=== PATIENT | female | born 1970 | race Caucasian/White ===

== ENCOUNTER 2019-06-08 19:46 | Emergency (ER) | payer SELFPAY | END 2019-06-08 21:34 | disposition home or self-care (01) | LOC: ED 19:46 ==

== ENCOUNTER 2019-07-05 22:40 | Emergency (ER) | payer SELFPAY ==
[2019-07-05] MEDS ORDERED: DUONEB 0.5-3 MG/3 ml Neb IH ONE (22:57)
--- NOTE | 2019-07-05 23:00 | ERPHSYRPT ---
- History of Present Illness Time Seen by Provider: 07/05/19 22:55 Source: patient Exam Limitations: no limitations Physician History: Cough and congestion the past two weeks Timing/Duration: week(s) (2), worse (over the past two days) Cough Quality/Degree: moderate, dry cough Possible Cause: occasional episodes, allergen exposure Modifying Factors: Worsens With: coughing Associated Symptoms: No fever, No chills, No chest pain/soreness, No cough, No dizziness, No earache, No facial pain, No headache, No lightheadedness, No muscle aches, No nasal congestion, No nasal drainage, No shortness of breath, No sinus infection, No sore throat, No wheezing Allergies/Adverse Reactions: No Known Drug Allergies Allergy (Unverified 06/08/19 20:02) Home Medications: Carvedilol 3.125 mg [Coreg 3.125 MG] 3.125 mg PO BID 07/05/19 [History] Hx Tetanus, Diphtheria Vaccination/Date Given: No Hx Influenza Vaccination/Date Given: No Hx Pneumococcal Vaccination/Date Given: No - Review of Systems Constitutional: No Fever, No Chills Eyes: No Eye Pain, No Vision Changes Ears, Nose, & Throat: Nose Congestion Respiratory: Cough, No Dyspnea Cardiac: No Chest Pain, No Edema, No Syncope Abdominal/Gastrointestinal: No Abdominal Pain, No Nausea, No Vomiting, No Diarrhea, No Hematemesis, No Hematochezia, No Melena Genitourinary Symptoms: No Dysuria, No Hematuria, No Flank Pain Musculoskeletal: No Back Pain, No Neck Pain Skin: No Rash Neurological: No Dizziness, No Focal Weakness, No Paralysis, No Parasthesia, No Sensory Changes Psychological: No Anxiety Endocrine: No Polydipsia, No Excessive Sweating Hematologic/Lymphatic: No Easy Bleeding, No Easy Bruising All Other Systems: Reviewed and Negative - Past Medical History Pertinent Past Medical History: No Neurological History: Migraines Cardiac History: No Pertinent History Respiratory History: Pneumonia Endocrine Medical History: No Pertinent History Musculoskeletal History: Arthritis GI Medical History: GERD History: No Pertinent History Psycho-Social History: No Pertinent History Female Reproductive Disorders: No Pertinent History - Past Surgical History Past Surgical History: Yes Neuro Surgical History: No Pertinent History Cardiac: No Pertinent History Respiratory: No Pertinent History Gastrointestinal: No Pertinent History Genitourinary: No Pertinent History Musculoskeletal: No Pertinent History Female Surgical History: Section, Tubal Ligation - Social History Smoking Status: Current every day smoker How long have you smoked: 20 Exposure to second hand smoke: Yes Drug Use: none Patient Lives Alone: No - Nursing Vital Signs Nursing Vital Signs: Initial Vital Signs Temperature 97.9 F 07/05/19 22:50 Pulse Rate 98 H 07/05/19 22:50 Respiratory Rate 20 07/05/19 22:50 Blood Pressure 144/99 07/05/19 22:50 O2 Sat by Pulse Oximetry 97 07/05/19 22:50 Pain Scale Pain Intensity 9 - Physical Exam General Appearance: no apparent distress, alert Eye Exam: PERRL/EOMI, eyes nml inspection Ears, Nose, Throat Exam: normal ENT inspection, TMs normal, pharynx normal, moist mucous membranes Neck Exam: normal inspection, non-tender, supple, full range of motion Respiratory Exam: airway intact, diminished breath sounds, prolonged expirations , wheezing, No chest tenderness, No respiratory distress, No accessory muscle use, No crackles/rales, No rhonchi, No stridor Cardiovascular Exam: regular rate/rhythm, normal heart sounds, capillary refill <2 sec Gastrointestinal/Abdomen Exam: soft, normal bowel sounds, No tenderness, No distention, No mass, No guarding, No rebound, No hernia, No hepatomegaly, No organomegaly, No splenomegaly Back Exam: normal inspection, No CVA tenderness, No vertebral tenderness Extremity Exam: normal inspection, normal range of motion, pelvis stable Neurologic Exam: alert, oriented x 3, cooperative, 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 tested, normal mood/affect, sensation nml, No motor deficits Skin Exam: normal color, warm, dry, No rash Lymphatic Exam: No adenopathy SpO2 Interpretation: normal SpO2: 97 O2 Delivery: Room Air - Radiology Exams Chest X-ray Interpretation: Interpreted by me, Reviewed by me, Negative, No Fracture, No Pneumonia, No Pneumothorax, No Infiltrates, Nml Mediastinum Ordered Tests: Active Orders 24 hr Category Date Time Status CHEST 2 VIEWS (PA AND LAT) Stat Exams 07/06/19 00:07 Taken Peak Expiratory Flow Rate ONCE RT 07/06/19 00:09 Active Respiratory Therapy Assessment DAILY RT 07/06/19 00:09 Active Medication Summary Discontinued Medications Generic Name Dose Route Start Last Admin Trade Name Freq PRN Reason Stop Dose Admin Albuterol/Ipratropium 6 ml 07/05/19 22:57 07/06/19 00:05 Duoneb 0.5-3 Mg/3 Ml Neb IH 07/05/19 22:58 6 ml STAT ONE Administration Albuterol/Ipratropium Confirm 07/06/19 00:02 Duoneb 0.5-3 Mg/3 Ml Neb Administered 07/06/19 00:03 Dose 3 ml IH .STK-MED ONE Albuterol/Ipratropium Confirm 07/06/19 00:08 Duoneb 0.5-3 Mg/3 Ml Neb Administered 07/06/19 00:09 Dose 3 ml IH .STK-MED ONE Albuterol/Ipratropium 3 ml 07/06/19 01:09 07/06/19 01:15 Duoneb 0.5-3 Mg/3 Ml Neb IH 07/06/19 01:10 3 ml STAT ONE Administration Albuterol/Ipratropium Confirm 07/06/19 01:13 Duoneb 0.5-3 Mg/3 Ml Neb Administered 07/06/19 01:14 Dose 3 ml IH .STK-MED ONE - Progress Progress: re-examined, unchanged Air Movement: fair Progress Note: 07/06/19 01:10 Decreased breath sounds throughout. Will repeat Duoneb treatment. 07/06/19 01:49 Improved airflow after third Duoneb treatment. No respiratory distress. Blood Culture(s) Obtained: No Antibiotics given: No Counseled pt/family regarding: diagnosis, need for follow-up, rad results - Departure Departure Disposition: Home Clinical Impression: Cough, Elevated blood pressure reading without diagnosis of hypertension Acute bronchitis Qualifiers: Bronchitis organism: unspecified organism Qualified Code(s): J20.9 - Acute bronchitis, unspecified Condition: Good Critical Care Time: No Referrals: EMMIE BARRY MD [Primary Care Provider] - Follow Up with PCP/3 days Instructions: DASH Diet, Acute Bronchitis, Adult (DC), Cough, Adult (DC) Additional Instructions: Your chest x-ray was read negative by the emergency department physician. We will call you tomorrow if the radiologist reads a difference interpretation that changes your treatment. Follow up with your doctor in 3 days. Continue to cut down on your smoking. Try not to smoke altogether. ffollow up with your physician in 3 days if the cough is no improvement. Return immediately back to the emergency room if any shortness of breath, worsening chest pain, new fever, any worse chest tightness, or any other concerning signs or symptoms that were not present at today's visit for immediate reevaluation in the emergency department. Forms: Work/School Release Form Prescriptions: Albuterol Sulfate [Proair Hfa] 8.5 gm IH Q4H PRN PRN #1 [id number] PRN Reason: Wheezing/Chest Congestion Prednisone 20 mg [Deltasone 20 mg] 60 mg PO DAILY #9 tablet Promethazine/Dextromethorphan [Promethazine-Dm Solution] 5 ml PO Q6-8HPRN PRN # 90 ml PRN Reason: Cough
[2019-07-06] MEDS ORDERED: DUONEB 0.5-3 MG/3 ml Neb IH ONE ×4 (00:02→01:13)
[2019-07-06 02:14] VITALS: BP 126/67; PULSE 92; O2SAT 94
--- NOTE | 2019-07-06 19:19 | XRAY ---
Exam: Two-view chest from 07/06/2019. Comparison: AP upright portable chest film from 06/08/2019. Indication: Cough for 2 weeks. Findings: Upright PA and lateral chest films are submitted for evaluation. The heart size and contour are normal. The drake and mediastinal structures appear intact. There is patchy density and scattered linear and curvilinear stranding at the left lung base which is new from 06/08/2019. This could be due to atelectatic changes. The possibly of some superimposed infiltrate cannot be excluded. The remainder of the lungs appears clear. No central vascular congestion, pneumothorax, or pleural fluid is seen. Mild lower thoracic anterior lateral vertebral endplate spurring is seen. I also note minimal levoscoliosis centered at T10-T11. Impression: 1. There is a new patchy airspace disease with linear and curvilinear stranding at the left lung base which may all be due to atelectatic changes. However, it is difficult to entirely exclude some superimposed infiltrate. Clinical correlation is recommended. Note: I personally called this report to the Emergency Department at 7:07 PM on 07/06/2019. .
== END 2019-07-06 02:15 | disposition home or self-care (01) ==
LOC: ED 22:40
DX: R05 Cough (principal); R03.0 Elevated blood-pressure reading, without diagnosis of hypertension; J20.9 Acute bronchitis, unspecified
CPT/HCPCS: 71046; 94150; 94640; 99284; A9270-GY

== ENCOUNTER 2019-08-29 07:00 | Emergency (ER) | payer MEDICAID ==
[2019-08-29] MEDS ORDERED: BABY ASPIRIN 81 MG CHEW PO ONE (07:12)
[2019-08-29] MEDS ORDERED: Sodium Chloride 0.9% 1000 ML 1,000 ML IV SCH (07:15)
[2019-08-29] MEDS ORDERED: Zofran 4 MG/2 ML VIAL IV ONE (07:15)
[2019-08-29] MEDS ORDERED: BABY ASPIRIN 81 MG CHEW ONE (07:21)
[2019-08-29] MEDS ORDERED: Zofran 4 MG/2 ML VIAL ONE (07:21)
[2019-08-29] MEDS ORDERED: Hydromorphone 1 mg/ml Ampule ONE ×2 (07:22→10:22)
[2019-08-29] MEDS ORDERED: Sodium Chloride 0.9% 1000 ML 1,000 ML ONE (07:22)
[2019-08-29] MEDS ORDERED: Hydromorphone 1 mg/ml Ampule IV ONE ×2 (07:23→10:16)
[2019-08-29 07:39] LABS: Absolute Neutrophil Ct (ANC) 6.75 (1.4-6.9); BASOPHIL % 0.2 % (0.0-0.4); Basophil (Absolute #) 0.02 (0-0.4); Eosinophil % 1.7 % (0.00-5.0); Eosinophil (Absolute #) 0.17 (0-0.5); Hematocrit 41.7 % (35-47); Hemoglobin 13.8 gm/dl (12.0-16.0); Lymphocyte (Absolute #) 2.58 (1.0-4.6); Mean Cell Volume 99.3 fl (78-100); Mean Corpuscular Hemoglobin 32.9 pg (26-32); Mean Corpuscular Hgb Concent. 33.1 g/dl (32-36); Mean Platelet Volume 9.1 fl (6-9.5); Monocyte (Absolute #) 0.39 (0.0-1.3); Monocytes % 3.9 % (0.0-12.0); Neutrophil % 68.2 % (36.0-66.0); Platelet Count 390 K/mm3 (150-450); Red Cell Distribution Width 14.9 % (11.5-14.0); White Blood Count 9.9 K/mm3 (4.0-10.5)
[2019-08-29 07:56] LABS: ALBUMIN 4.1 g/dL (3.5-5.0); ALKALINE PHOSPHATASE 75 U/L (38-126); AMYLASE 73 U/L (30-110); ANION GAP 14.1 MEQ/L (5-15); BLOOD UREA NITROGEN 6 mg/dL (7-17); CHLORIDE 104 mmol/L (98-107); CK-Creatinine Phosphokinase 70 U/L (30-135); Calcium 8.9 mg/dL (8.4-10.2); Carbon Dioxide 25 mmol/L (22-30); Creatinine 1 0.81 mg/dL (0.52-1.04); Glucose 174 mg/dL (74-106); LIPASE 151 U/L (23-300); NT PRO BNP 75.1 pg/mL (0-450); Potassium 3.5 mmol/L (3.5-5.1); SGOT/AST 20 U/L (14-36); SGPT/ALT 21 U/L (0-35); SODIUM 140 mmol/L (137-145); Total Protein 7.7 g/dL (6.3-8.2)
[2019-08-29 08:16] LABS: INR 0.97 (0.8-3.0)
[2019-08-29 08:19] LABS: PTT 35.7 SECONDS (25.3-37.0)
--- NOTE | 2019-08-29 13:21 | ERPHSYRPT ---
- History of Present Illness Time Seen by Provider: 08/29/19 07:03 Historian: patient Exam Limitations: no limitations Patient Subjective Stated Complaint: Pt states "about an hour ago I started to have shortness of breath and chest pain." Triage Nursing Assessment: Pt presented through the front, alert and orietned X 3, skin pwd Pt ambulates with an upright steady gait, able to speak in clear full sentences. Pt anxious and tachypneic Physician History: patient is a 48-year-old female who presents with shortness of breath and substernal pressure type pain along with tenderness in the epigastrium and right upper quadrant. This pain started while she was laying down she became nauseated. She was resected diagnosed with COPD and breathing issues she has seen Dr. Longoria in the past for a workup which only showed a leaky valve. She' s had no fever or chills a little bit of sweating no history of diabetes she does have a family history that's positive that she is a smoker as her only risk factors for coronary artery disease. Timing/Duration: today Activities at Onset: rest Quality: burning, cramping, sharpness Abdominal Pain Onset Location: RUQ, epigastric Pain Radiation: back Severity of Pain-Max: moderate Modifying Factors: Improves With: nothing Associated Symptoms: chest pain Allergies/Adverse Reactions: No Known Drug Allergies Allergy (Verified 08/29/19 07:16) Home Medications: Carvedilol 3.125 mg [Coreg 3.125 MG] 3.125 mg PO BID 07/05/19 [History] Albuterol Sulfate [Albuterol Sulfate Hfa] 1 puff IH DAILY 08/29/19 [History] Aspirin [Aspirin EC] 81 mg PO DAILY 08/29/19 [History] Hx Tetanus, Diphtheria Vaccination/Date Given: No Hx Influenza Vaccination/Date Given: No Hx Pneumococcal Vaccination/Date Given: No Immunizations Up to Date: Yes - Review of Systems Constitutional: No Fever, No Chills Eyes: No Symptoms Ears, Nose, & Throat: No Symptoms Respiratory: No Cough, No Dyspnea Cardiac: Chest Pain, No Edema, No Syncope Abdominal/Gastrointestinal: Abdominal Pain, Nausea, No Vomiting, No Diarrhea Genitourinary Symptoms: No Dysuria Musculoskeletal: No Back Pain, No Neck Pain Skin: No Rash Neurological: No Dizziness, No Focal Weakness, No Sensory Changes Psychological: No Symptoms Endocrine: No Symptoms All Other Systems: Reviewed and Negative - Past Medical History Pertinent Past Medical History: Yes Neurological History: Migraines ENT History: No Pertinent History Cardiac History: No Pertinent History Respiratory History: Pneumonia Endocrine Medical History: No Pertinent History Musculoskeletal History: Arthritis GI Medical History: GERD History: No Pertinent History Psycho-Social History: No Pertinent History Female Reproductive Disorders: No Pertinent History Other Medical History: emphysema. leaky heart valve - Past Surgical History Past Surgical History: Yes Neuro Surgical History: No Pertinent History Cardiac: No Pertinent History Respiratory: No Pertinent History Gastrointestinal: No Pertinent History Genitourinary: No Pertinent History Musculoskeletal: No Pertinent History Female Surgical History: Section, Tubal Ligation - Social History Smoking Status: Current every day smoker How long have you smoked: years Exposure to second hand smoke: Yes Drug Use: none Patient Lives Alone: No - Female History Hx Last Menstrual Period: 06/29/2019 Hx Now: No - Nursing Vital Signs Nursing Vital Signs: Initial Vital Signs Temperature 97.3 F 08/29/19 07:02 Pulse Rate 73 08/29/19 07:02 Respiratory Rate 22 08/29/19 07:02 Blood Pressure 134/96 08/29/19 07:02 O2 Sat by Pulse Oximetry 99 08/29/19 07:02 Pain Scale Pain Intensity 5 - Physical Exam General Appearance: mild distress, alert Eye Exam: PERRL/EOMI, eyes nml inspection Ears, Nose, Throat Exam: normal ENT inspection, pharynx normal, moist mucous membranes Neck Exam: normal inspection, non-tender, supple, full range of motion Respiratory Exam: normal breath sounds, lungs clear, No respiratory distress Cardiovascular Exam: regular rate/rhythm, normal heart sounds Gastrointestinal/Abdomen Exam: tenderness, No mass, No guarding, No rebound Pelvic Exam: deferred Back Exam: normal inspection, normal range of motion, No CVA tenderness, No vertebral tenderness Extremity Exam: normal inspection, normal range of motion, pelvis stable Neurologic Exam: alert, oriented x 3, cooperative, normal mood/affect, nml cerebellar function, sensation nml, No motor deficits Skin Exam: normal color, warm, dry SpO2: 96 - Course EKG Interpreted by Me: RATE (81), NORMAL AXIS, NORMAL INTERVALS, NORMAL QRS - Radiology Exams Chest X-ray Interpretation: Reviewed by me, Negative - CT Exams Abdomen/Pelvis CT Interpretation: Negative, Tele-radiologist Report Ordered Tests: Active Orders 24 hr Category Date Time Status ABDOMEN AND PELVIS W CONTRAST [CT] Stat Exams 08/29/19 08:47 Taken CHEST 1 VIEW (PORTABLE) Stat Exams 08/29/19 07:13 Taken AMYLASE Stat Lab 08/29/19 07:25 Completed CBC W DIFF Stat Lab 08/29/19 07:25 Completed CK-Creatinine Phosphokinase Stat Lab 08/29/19 07:25 Completed CMP Stat Lab 08/29/19 07:25 Completed D-DIMER QUANTITATION Stat Lab 08/29/19 07:25 Completed HCG QUALITATIVE,SERUM Stat Lab 08/29/19 07:25 Completed LIPASE Stat Lab 08/29/19 07:25 Completed NT PRO BNP Stat Lab 08/29/19 07:25 Completed PROTIME WITH INR Stat Lab 08/29/19 07:25 Completed PTT Stat Lab 08/29/19 07:25 Completed TROPONIN Q3H Lab 08/29/19 07:25 Completed TROPONIN Q3H Lab 08/29/19 10:15 Completed TROPONIN Q3H Lab 08/29/19 13:15 Ordered TROPONIN Q3H Lab 08/29/19 16:15 Ordered TROPONIN Q3H Lab 08/29/19 19:15 Ordered Medication Summary Generic Name Dose Route Start Last Admin Trade Name Freq PRN Reason Stop Dose Admin Sodium Chloride 1,000 mls @ 50 mls/hr 08/29/19 07:15 08/29/19 07:25 Sodium Chloride 0.9% 1000 Ml IV 09/28/19 07:14 50 mls/hr .Q20H [facility] Administration Discontinued Medications Generic Name Dose Route Start Last Admin Trade Name Freq PRN Reason Stop Dose Admin Aspirin 243 mg 08/29/19 07:12 08/29/19 07:25 Baby Aspirin 81 Mg Chew PO 08/29/19 07:13 243 mg STAT ONE Administration Aspirin Confirm 08/29/19 07:21 Baby Aspirin 81 Mg Chew Administered 08/29/19 07:22 Dose 243 mg .ROUTE .STK-MED ONE Hydromorphone HCl Confirm 08/29/19 07:22 Hydromorphone 1 Mg/Ml Ampule Administered 08/29/19 07:23 Dose 1 mg .ROUTE .STK-MED ONE Hydromorphone HCl 1 mg 08/29/19 07:23 08/29/19 07:25 Hydromorphone 1 Mg/Ml Ampule IV 08/29/19 07:24 1 mg STAT ONE Administration Hydromorphone HCl 1 mg 08/29/19 10:16 08/29/19 10:24 Hydromorphone 1 Mg/Ml Ampule IV 08/29/19 10:17 1 mg STAT ONE Administration Hydromorphone HCl Confirm 08/29/19 10:22 Hydromorphone 1 Mg/Ml Ampule Administered 08/29/19 10:23 Dose 1 mg .ROUTE .STK-MED ONE Ondansetron HCl 4 mg 08/29/19 07:15 08/29/19 07:25 Zofran 4 Mg/2 Ml Vial IV 08/29/19 07:16 4 mg STAT ONE Administration Ondansetron HCl Confirm 08/29/19 07:21 Zofran 4 Mg/2 Ml Vial Administered 08/29/19 07:22 Dose 4 mg .ROUTE .STK-MED ONE Lab/Rad Data: Laboratory Result Diagrams 08/29/19 07:25 08/29/19 07:25 Laboratory Results 08/29/19 08/29/19 08/29/19 Range/Units 10:15 07:25 07:25 WBC (4.0-10.5) K/mm3 RBC (4.1-5.4) M/mm3 Hgb (12.0-16.0) gm/dl Hct (35-47) % MCV (78-100) fl MCH (26-32) pg MCHC (32-36) g/dl RDW (11.5-14.0) % Plt Count (150-450) K/mm3 MPV (6-9.5) fl Gran % (36.0-66.0) % Eos # (Auto) (0-0.5) Absolute Lymphs (auto) (1.0-4.6) Absolute Monos (auto) (0.0-1.3) Lymphocytes % (24.0-44.0) % Monocytes % (0.0-12.0) % Eosinophils % (0.00-5.0) % Basophils % (0.0-0.4) % Absolute Granulocytes (1.4-6.9) Basophils # (0-0.4) PT (9.95-12.35) SECONDS INR (0.8-3.0) APTT (25.3-37.0) SECONDS D-Dimer (215-500) ng/mL Sodium (137-145) mmol/L Potassium (3.5-5.1) mmol/L Chloride (98-107) mmol/L Carbon Dioxide (22-30) mmol/L Anion Gap (5-15) MEQ/L BUN (7-17) mg/dL Creatinine (0.52-1.04) mg/dL Estimated GFR ML/MIN Glucose (74-106) mg/dL Calcium (8.4-10.2) mg/dL Total Bilirubin (0.2-1.3) mg/dL AST (14-36) U/L ALT (0-35) U/L Alkaline Phosphatase (38-126) U/L Creatine Kinase (30-135) U/L Troponin I < 0.012 < 0.012 (0.000-0.034) ng/mL NT-Pro-B Natriuret Pep (0-450) pg/mL Serum Total Protein (6.3-8.2) g/dL Albumin (3.5-5.0) g/dL Amylase (30-110) U/L Lipase (23-300) U/L Serum , Qual NEGATIVE (Negative) 08/29/19 08/29/19 08/29/19 Range/Units 07:25 07:25 07:25 WBC 9.9 (4.0-10.5) K/mm3 RBC 4.20 (4.1-5.4) M/mm3 Hgb 13.8 (12.0-16.0) gm/dl Hct 41.7 (35-47) % MCV 99.3 (78-100) fl MCH 32.9 H (26-32) pg MCHC 33.1 (32-36) g/dl RDW 14.9 H (11.5-14.0) % Plt Count 390 (150-450) K/mm3 MPV 9.1 (6-9.5) fl Gran % 68.2 H (36.0-66.0) % Eos # (Auto) 0.17 (0-0.5) Absolute Lymphs (auto) 2.58 (1.0-4.6) Absolute Monos (auto) 0.39 (0.0-1.3) Lymphocytes % 26.0 (24.0-44.0) % Monocytes % 3.9 (0.0-12.0) % Eosinophils % 1.7 (0.00-5.0) % Basophils % 0.2 (0.0-0.4) % Absolute Granulocytes 6.75 (1.4-6.9) Basophils # 0.02 (0-0.4) PT 11.0 (9.95-12.35) SECONDS INR 0.97 (0.8-3.0) APTT 35.7 (25.3-37.0) SECONDS D-Dimer 244 (215-500) ng/mL Sodium 140 (137-145) mmol/L Potassium 3.5 (3.5-5.1) mmol/L Chloride 104 (98-107) mmol/L Carbon Dioxide 25 (22-30) mmol/L Anion Gap 14.1 (5-15) MEQ/L BUN 6 L (7-17) mg/dL Creatinine 0.81 (0.52-1.04) mg/dL Estimated GFR > 60.0 ML/MIN Glucose 174 H (74-106) mg/dL Calcium 8.9 (8.4-10.2) mg/dL Total Bilirubin 0.40 (0.2-1.3) mg/dL AST 20 (14-36) U/L ALT 21 (0-35) U/L Alkaline Phosphatase 75 (38-126) U/L Creatine Kinase 70 (30-135) U/L Troponin I (0.000-0.034) ng/mL NT-Pro-B Natriuret Pep 75.1 (0-450) pg/mL Serum Total Protein 7.7 (6.3-8.2) g/dL Albumin 4.1 (3.5-5.0) g/dL Amylase 73 (30-110) U/L Lipase 151 (23-300) U/L Serum , Qual (Negative) - Progress Progress: improved, pain not gone completely - Departure Departure Disposition: Home Clinical Impression: Biliary colic Condition: Stable Critical Care Time: No Referrals: EMMIE BARRY MD [Primary Care Provider] - Instructions: Gallstones Prescriptions: PANTOPRAZOLE 40 mg Tablet [Protonix 40MG Tablet] 40 mg PO QAM 30 Days #30 tab
[2019-08-29 13:29] VITALS: BP 165/80; PULSE 65; O2SAT 98
--- NOTE | 2019-08-29 15:11 | XRAY ---
Indication: Short of breath and chest pain. Comparison: July 06, 2019. Portable chest less inflated again with subtle left base infiltrate/atelectasis. Remaining heart and lungs normal. Bony thorax intact.
--- NOTE | 2019-08-29 15:42 | XRAY ---
Indication: Epigastric and right upper quadrant pain. Multiple contiguous axial images obtained through the abdomen and pelvis using 80 cc Isovue 370 contrast only as ordered. Comparison: None Lung bases demonstrates bibasilar atelectasis/scarring without focal infiltrate or effusion. Heart is not enlarged. Stomach is distended with food/fluid. Noncontrasted stomach and bowel loops appear nonobstructed. Normal appendix. Minimal sigmoid diverticulosis. No free fluid/air. Mild fatty liver. Remaining liver, gallbladder, pancreas, spleen, adrenal glands, kidneys, ureters, bladder, and uterus appear unremarkable. Minimal aortoiliac calcifications. No AAA or pathologic retroperitoneal lymphadenopathy. Osseous structures intact. Impression: Mild fatty liver and minimal sigmoid diverticulosis. Remaining CT abdomen/pelvis with contrast exam is negative. Comment: Preliminary interpretation was made by [facility]. No critical discrepancy. CTDI 19.58
== END 2019-08-29 13:37 | disposition home or self-care (01) ==
LOC: ED 07:00
DX: K80.50 Calculus of bile duct without cholangitis or cholecystitis without obstruction (principal)
CPT/HCPCS: 36415; 71045; 74177; 80053; 81025; 82150; 82550; 83690; 83880; 84484; 85025; 85379; 85610; 85730; 96360; 96361; 96374; 96375; 96376; 99284; J1170; J2405; A9270-GY

== ENCOUNTER 2021-03-28 11:27 | Emergency (ER) | payer SELFPAY ==
[2021-03-28] MEDS ORDERED: DUONEB 0.5-3 MG/3 ml Neb IH ONE ×2 (12:10→12:19)
--- NOTE | 2021-03-28 12:16 | ERPHSYRPT ---
- History of Present Illness Time Seen by Provider: 03/28/21 11:40 Source: patient Exam Limitations: no limitations Patient Subjective Stated Complaint: pt here for cough and sorethroat since saturday, no fever Triage Nursing Assessment: pt alert, walked in, resp easy skin w/d/p,chest clear, abd soft Physician History: Patient is a 50-year-old female presents to our emergency department with complaints of a cough, sore throat and nasal congestion that she has had since Saturday, 2 days ago. Patient has a history of pneumonia and is concerned that she may have pneumonia again. No fever. No nausea or vomiting. Mild SOB with exertion. Cough is dry nonproductive. 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 She denies chest pain. No nausea or vomiting. No diarrhea. No rash. No trauma. She has had similar symptoms in the past and was diagnosed with pneumonia. Patient voices no other complaints or concerns at this time. Timing/Duration: day(s) (2 days) Activities at Onset: none Severity of Dyspnea-Max: mild Severity of Dyspnea-Current: mild Possible Cause: no prior episodes Modifying Factors: Improves With: nothing Associated Symptoms: No chest pain/discomfort, No fever, No lightheadedness, No wheezing, No weakness, No ankle swelling, No calf pain (Patient has no calf pain.), No leg swelling ( No leg swelling.), No painful breathing (No pleuritic chest pain. Patient is not hypoxic.) Allergies/Adverse Reactions: No Known Drug Allergies Allergy (Verified 03/28/21 11:40) Home Medications: Carvedilol 3.125 mg [Coreg 3.125 MG] 3.125 mg PO BID 07/05/19 [History] Albuterol Sulfate [Albuterol Sulfate Hfa] 1 puff IH DAILY 08/29/19 [History] Aspirin [Aspirin EC] 81 mg PO DAILY 08/29/19 [History] Hx Tetanus, Diphtheria Vaccination/Date Given: No Hx Influenza Vaccination/Date Given: Yes Hx Pneumococcal Vaccination/Date Given: No Immunizations Up to Date: Yes Travel Risk - International Travel Have you traveled outside of the country in past 3 weeks: No - Coronavirus Screening Are you exhibiting any of the following symptoms?: Yes Symptoms: Cough: New Onset, Shortness of Breath Close contact with a COVID-19 positive Pt in past 14-21 Days: No - Vaccine Status Have you recieved a Covid-19 vaccination: No - Review of Systems Constitutional: No Symptoms, No Fever, No Chills Eyes: No Symptoms Ears, Nose, & Throat: No Symptoms Respiratory: No Symptoms, No Cough, No Dyspnea Cardiac: No Symptoms, No Chest Pain, No Edema, No Syncope Abdominal/Gastrointestinal: No Symptoms, No Abdominal Pain, No Nausea, No Vomiting, No Diarrhea Genitourinary Symptoms: No Symptoms, No Dysuria Musculoskeletal: No Symptoms, No Back Pain, No Neck Pain Skin: No Symptoms, No Rash Neurological: No Symptoms, No Dizziness, No Focal Weakness, No Sensory Changes Psychological: No Symptoms Endocrine: No Symptoms Hematologic/Lymphatic: No Symptoms Immunological/Allergic: No Symptoms All Other Systems: Reviewed and Negative - Past Medical History Pertinent Past Medical History: Yes Neurological History: Migraines ENT History: No Pertinent History Cardiac History: No Pertinent History Respiratory History: Emphysema Endocrine Medical History: No Pertinent History Musculoskeletal History: Arthritis GI Medical History: GERD History: No Pertinent History Psycho-Social History: No Pertinent History Female Reproductive Disorders: No Pertinent History Other Medical History: emphysema. leaky heart valve - Past Surgical History Past Surgical History: Yes Neuro Surgical History: No Pertinent History Cardiac: No Pertinent History Respiratory: No Pertinent History Gastrointestinal: Cholecystectomy Genitourinary: No Pertinent History Musculoskeletal: No Pertinent History Female Surgical History: Section, Tubal Ligation - Social History Smoking Status: Current every day smoker How long have you smoked: years Exposure to second hand smoke: Yes Drug Use: none Patient Lives Alone: No - Female History Hx Last Menstrual Period: 3 years ago Hx Now: No - Nursing Vital Signs Nursing Vital Signs: Initial Vital Signs Temperature 97.2 F 03/28/21 11:35 Pulse Rate 92 H 03/28/21 11:35 Respiratory Rate 18 03/28/21 11:35 Blood Pressure 152/73 03/28/21 11:35 O2 Sat by Pulse Oximetry 97 03/28/21 11:35 Pain Scale Pain Intensity 4 - Physical Exam General Appearance: no apparent distress, alert Eye Exam: PERRL/EOMI Ears, Nose, Throat Exam: hearing grossly normal, normal pharynx, nasal congestion, No tonsillar exudate, No tonsillar swelling Neck Exam: normal inspection, supple, full range of motion Respiratory Exam: normal breath sounds, lungs clear, airway intact, No respiratory distress Cardiovascular/Chest Exam: normal heart sounds, regular rate/rhythm Abdominal/Gastrointestinal Exam: soft, No tenderness, No distention, No mass Extremity Exam: non-tender, normal range of motion, normal inspection, no calf tenderness, no pedal edema Neurologic Exam: alert, oriented x 3, cooperative, 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 Remaining heart lungs unremarkable. Bony thorax intact. Mild degenerative changes.) Ordered Tests: Active Orders 24 hr Category Date Time Status CHEST 1 VIEW (PORTABLE) Stat Exams 03/28/21 12:08 Completed Respiratory Therapy Assessment DAILY RT 03/28/21 12:25 Completed Medication Summary Discontinued Medications Generic Name Dose Route Start Last Admin Trade Name Vazquezq PRN Reason Stop Dose Admin Albuterol/Ipratropium 3 ml 03/28/21 12:10 03/28/21 12:24 Duoneb 0.5-3 Mg/3 Ml Neb IH 03/28/21 12:11 3 ml STAT ONE Administration Albuterol/Ipratropium Confirm 03/28/21 12:19 Duoneb 0.5-3 Mg/3 Ml Neb Administered 03/28/21 12:20 Dose 3 ml IH .STK-MED ONE Doxycycline Hyclate 100 mg 03/28/21 13:15 03/28/21 13:24 Vibramycin 100 Mg PO 03/28/21 13:16 100 mg STAT ONE Administration Doxycycline Hyclate Confirm 03/28/21 13:23 Vibramycin 100 Mg Administered 03/28/21 13:24 Dose 100 mg .ROUTE .STK-MED ONE - Progress Progress: improved Air Movement: good Progress Note: Patient reassessed. She feels well. Vitals are within normal limits. Blood pressure 136/69. O2 sat on room air is 97%. Heart rate is 89. Patient states the nebulizer treatment helped her feel better. We will discharge patient home with doxycycline p.o. twice daily as well as an inhaler. Patient ambulated throughout our ED. She maintains a ambulation saturation of 97%. She had no complaints she appeared comfortable. Patient agrees to follow-up with her primary care doctor within 48 hours for reevaluation. No indication for further work-up at this time. 03/28/21 13:21 03/28/21 13:48 Blood Culture(s) Obtained: No Antibiotics given: No Counseled pt/family regarding: diagnosis, need for follow-up, rad results - Departure Departure Disposition: Home Clinical Impression: Pneumonia, Cough, URI (upper respiratory infection) Condition: Stable Critical Care Time: No Referrals: EMMIE BARRY MD [Primary Care Provider] - Instructions: Cough, Adult (DC) Additional Instructions: Discharge/Care Plan LATHA FLOYD was seen on 03/28/21 in the Emergency Room. The patient was counseled regarding Diagnosis,Lab results, Imaging studies, need for follow up and when to return to the Emergency Room. Prescriptions given: Discharge Note I have spoken with the patient and/or caregivers. I have explained the patient's condition, diagnosis and treatment plan based on the information available to me at this time. I have answered the patient's and/or caregiver's questions and addressed any concerns. The patient and/or caregivers have as good understanding of the patient's diagnosis, condition and treatment plan as can be expected at this point. The vital signs have been stable. The patient's condition is stable and appropriate for discharge from the emergency department. The patient will pursue further outpatient evaluation with the primary care physician or other designated or consulting physician as outlined in the discharge instructions. The patient and/or caregivers are agreeable to this plan of care and follow-up instructions have been explained in detail. The patient and/or caregivers have received these instruction. The patient/and or caregivers are aware that any significant change in condition or worsening of symptoms should prompt an immediate return to this or the closest emergency department or call 911. Prescriptions: Albuterol 8 gm Mdi Hfa [Ventolin Hfa MDI] 8 gm IH Q4H #1 [email or web address] Doxycycline Hyclate 100 mg [Vibramycin 100 MG] 100 mg PO BID 7 Days #14 tab
--- NOTE | 2021-03-28 12:30 | XRAY ---
Indication: Cough and chest pain. Comparison: August 29, 2019. Portable chest demonstrates new right middle lobe infiltrate versus atelectasis. Remaining heart and lungs unremarkable. Bony thorax intact again with mild degenerative changes.
[2021-03-28] MEDS ORDERED: Vibramycin 100 MG PO ONE (13:15)
[2021-03-28] MEDS ORDERED: Vibramycin 100 MG ONE (13:23)
[2021-03-28 13:28] VITALS: BP 136/69; PULSE 83
[2021-03-28 13:29] VITALS: O2SAT 98
== END 2021-03-28 13:45 | disposition home or self-care (01) ==
LOC: ED 11:27
DX: J18.9 Pneumonia, unspecified organism (principal); R05 Cough; J06.9 Acute upper respiratory infection, unspecified
CPT/HCPCS: 71045; 94640; 99284; A9270-GY

== ENCOUNTER 2025-05-13 11:38 | Emergency (ER) | payer MEDICAID ==
[2025-05-13 11:54] VITALS: RESP 18; TEMP 96.6; O2SAT 96
--- NOTE | 2025-05-13 12:01 | ERPHSYRPT ---
- History of Present Illness Source: patient Exam Limitations: no limitations Patient Subjective Stated Complaint: pt stated she had a fall and injured left knee last night. states she has had many falls this month, due to "knee buckeling" Triage Nursing Assessment: pt arrived in wheelchair with daughter, hypertensive. pain 07/23. Physician History: Patient had trauma about 4 weeks ago. It was a twisting injury she believes to her knee.. Walking makes it worse rest ice and elevate helps it. There is some effusion in the knee as well 2. Pain is pretty much constant. It has flareups here and there.She does not have a orthopedic doctor.Symptoms have does not improve much as she is seeking help.It happened [place]. The patient thinks she may have fallen straight down on her knee. Modifying Factors: Improves With: nothing Associated Symptoms: none Allergies/Adverse Reactions: No Known Drug Allergies Allergy (Verified 03/28/21 11:40) Home Medications: Aspirin [Aspirin EC] 81 mg PO DAILY 08/29/19 [History] Insulin Glargine [Lantus Insulin] 40 unit SQ DAILY 05/13/25 [History] Hx Tetanus, Diphtheria Vaccination/Date Given: Yes Hx Influenza Vaccination/Date Given: No Hx Pneumococcal Vaccination/Date Given: No Immunizations Up to Date: Yes Travel Risk - International Travel Have you traveled outside of the country in past 3 weeks: No - Emerging Infectious Disease Are you exhibiting symptoms associated with any current EIDs: No - Review of Systems Constitutional: No Symptoms Eyes: No Symptoms Respiratory: No Symptoms Cardiac: No Symptoms Skin: No Symptoms Neurological: No Symptoms - Past Medical History Pertinent Past Medical History: Yes Neurological History: Migraines ENT History: No Pertinent History Cardiac History: No Pertinent History Respiratory History: Emphysema Endocrine Medical History: Diabetes Type II Musculoskeletal History: Arthritis History: No Pertinent History Psycho-Social History: No Pertinent History Female Reproductive Disorders: No Pertinent History Other Medical History: emphysema. leaky heart valve - Past Surgical History Past Surgical History: Yes Gastrointestinal: Cholecystectomy Female Surgical History: Section, Tubal Ligation - Female History Hx Last Menstrual Period: 9 years Hx Now: No - Social History Smoking Status: Current every day smoker Drug Use: none - Social Determinants of Health Will the patient participate in the screening: Yes Do you worry about a steady place to live?: No Do you have any problems with any of the following?: No known problems In the past 12 months,have you had to go without utilities?: No Transportation Issues: No Has anyone in your support network made you feel unsafe?: No Have you or anyone in your house had to go w/o enough food: No - Nursing Vital Signs Nursing Vital Signs: Initial Vital Signs Temperature 96.6 F 05/13/25 11:41 Pulse Rate 94 H 05/13/25 11:41 Respiratory Rate 18 05/13/25 11:41 Blood Pressure 144/101 05/13/25 11:41 O2 Sat by Pulse Oximetry 96 05/13/25 11:41 Pain Scale Pain Intensity 10 - Physical Exam General Appearance: no apparent distress Eyes, Ears, Nose, Throat Exam: normal ENT inspection Back Exam: normal inspection Legs Exam: bilateral leg: non-tender, normal inspection, normal range of motion Knees Exam: left knee: pain, soft tissue tenderness, swelling, other (Pain with medial lateral Grind) Ankle Exam: bilateral ankle: non-tender, normal inspection, normal range of motion Foot Exam: bilateral foot: non-tender, normal inspection, normal range of motion Neuro/Tendon Exam: normal sensation, normal motor functions Mental Status Exam: alert, oriented x 3 Skin Exam: normal color, warm SpO2: 96 - Course Nursing assessment & vital signs reviewed: Yes Ordered Tests: Active Orders 24 hr Category Date Time Status Crutches STAT Care 05/13/25 12:34 Ordered Splint STAT Care 05/13/25 12:32 Ordered KNEE (3 VIEWS) Stat Exams 05/13/25 11:57 Completed - Progress Progress: unchanged Progress Note: An x-ray showedA patellar fracture.I am going to refer the patient to orthopedics. I put her in a knee immobilizer and gave her crutches. She was also given some Prosperity for pain.She is to rest ice and elevate. 05/13/25 12:35 - Departure Departure Disposition: Home Clinical Impression: Patellar sleeve fracture of left knee Condition: Stable Critical Care Time: No Referrals: RADHA CABRERA [employer] [employer]GER [Non-Physician Practitioner, UNKNOWN] - Follow up/PCP as directed Instructions: Patella Fracture ED
[2025-05-13 12:05] VITALS: BP 153/84; PULSE 93
--- NOTE | 2025-05-13 12:23 | XRAY ---
Indication: Trauma. Pain. Comparison: None 3 view left knee demonstrates fragmented lateral patella either fracture versus bipartite patella. Elsewhere osteopenia, minimal/mild tricompartmental degenerative changes greatest medial compartment, small nonspecific effusion, and a few lower leg benign-appearing soft tissue calcifications.
[2025-05-13] MEDS ORDERED: NORCO 5/325 MG ONE (12:40)
[2025-05-13] MEDS: NORCO 5/325 MG PO ONE (12:41)
== END 2025-05-13 12:58 | disposition home or self-care (01) ==
LOC: ED 11:38
DX: S82.092A Other fracture of left patella, initial encounter for closed fracture (principal); X50.0XXA Overexertion from strenuous movement or load, initial encounter; E11.9 Type 2 diabetes mellitus without complications; Z79.4 Long term (current) use of insulin; Z79.891 Long term (current) use of opiate analgesic; Z72.0 Tobacco use